=== PATIENT | male | born 1985 | race American Indian/Alaskan Native ===

== ENCOUNTER 2020-12-27 11:39 | Emergency (ER) | payer SELFPAY ==
[2020-12-27 12:21] VITALS: BP 150/89
--- NOTE | 2020-12-27 12:28 | Emergency Department Report ---
ED Rash HPI - HPI Chief Complaint: Urogenital-Male Stated Complaint: POSSIBLE STD Time Seen by Provider: 12/27/20 12:24 Duration: 3 Days Location: Other (Genitalia) Suspected Cause: Unknown Rash Symptoms: Yes Itching, No Facial Swelling, No Fever, No Myalgias Severity: mild Other History: Patient complains of lesions to his penis that are itchy and hurt when he touches them ongoing for the past few days. No prior history of similar. ED Review of Systems ROS: Stated complaint: POSSIBLE STD Other details as noted in HPI Comment: All other systems reviewed and negative Genitourinary: as per HPI ED Past Medical Hx - Past Medical History Previous Medical History?: No - Surgical History Past Surgical History?: No - Social History Smoking Status: Current Every Day Smoker Substance Use Type: None - Medications Home Medications: Home Medications Medication Instructions Recorded Confirmed Last Taken Type Acyclovir 400 mg PO Q8H #30 tablet 12/27/20 Unknown Rx Rash Exam - Exam General: Vital signs noted. No distress. Alert and acting appropriately. HEENT: No Periorbital Edema, No Conjuctival Injection, No Chemosis, No Perioral Edema, No Tongue Edema, No Uvular Edema, No Compromised Airway, No Drooling Lungs: Yes Good Air Exchange (Normal Breath Sounds), No Wheezes, No Ronchi, No Stridor, No Cough, No Labored Respirations, No Retractions, No Use of Accessory Muscles, No Other Abnormal Lung Sounds Heart: Yes Regular, No Murmur Skin: Yes Other (Lesions consistent with HSV noted to the distal penis) Other: Positive: Abdomen Normal, Neurologic Normal, Musculoskeletal Normal ED Course Vital Signs 12/27/20 12:19 Temperature 98.6 F Pulse Rate 80 Respiratory 18 Rate Blood Pressure 150/89 O2 Sat by Pulse 97 Oximetry ED Medical Decision Making - Medical Decision Making Patient presents with lesions to the penis that are itchy for the past few days. On my exam lesions are consistent with HSV. No prior history. We will treat and refer to PCP for follow-up. Discussed risk of spread and to discuss with sexual partners. - Differential Diagnosis HSV, syphilis Critical care attestation.: If time is entered above; I have spent that time in minutes in the direct care of this critically ill patient, excluding procedure time. ED Disposition Clinical Impression: Herpes simplex virus (HSV) infection Disposition: DC-01 TO HOME OR SELFCARE Is pt being admited?: No Condition: Good Instructions: Genital Herpes Prescriptions: Acyclovir 400 mg PO Q8H #30 tablet Referrals: PRIMARY CARE, [Primary Care Provider] - 3-5 Days Time of Disposition: 12:28
== END 2020-12-27 13:28 | disposition home or self-care (01) ==
LOC: ED 11:39
DX: B00.9 Herpesviral infection, unspecified (principal); F17.200 Nicotine dependence, unspecified, uncomplicated; Z79.899 Other long term (current) drug therapy
CPT/HCPCS: 99282